=== PATIENT | male | born 1950 | race Two or more races ===

== ENCOUNTER 2017-11-12 09:00 | Outpatient (CLI) | payer OTHER | END 2017-11-12 09:02 | disposition home or self-care (01) | LOC: RAD 501 09:00 | DX: M19.071 Primary osteoarthritis, right ankle and foot (principal); M19.072 Primary osteoarthritis, left ankle and foot ==

== ENCOUNTER 2021-09-04 06:27 | Emergency (ER) | payer OTHER ==
[~2021-09-04] VITALS: Ht 172.7 cm; Wt 68.0 kg
[2021-09-04] MEDS ORDERED: LOSARTAN POTAS100 MG PO (07:13)
[2021-09-04] MEDS ORDERED: CILOSTAZOL100 MG PO (07:14)
[2021-09-04] MEDS ORDERED: PLAVIX75 MG PO (07:14)
[2021-09-04] MEDS ORDERED: VAZALORE81 MG PO (07:14)
[2021-09-04] MEDS ORDERED: CARVEDILOL ER40 MG (07:14)
[2021-09-04] MEDS ORDERED: VALACYCLOVIR500 MG PO (08:50)
[2021-09-04] MEDS ORDERED: GABAPENTIN100 MG PO (08:50)
== END 2021-09-04 08:55 | disposition home or self-care (01) ==
LOC: ER 06:27
DX: B02.9 Zoster without complications (principal)

== ENCOUNTER 2021-09-07 14:34 | Emergency (ER) | payer OTHER ==
[~2021-09-07] VITALS: Ht 172.7 cm; Wt 68.0 kg
[~2021-09-07 14:34] MED LIST: CARVEDILOL ER40 MG; CILOSTAZOL100 MG PO; GABAPENTIN100 MG PO; LOSARTAN POTAS100 MG PO; PLAVIX75 MG PO; VALACYCLOVIR500 MG PO; VAZALORE81 MG PO
== END 2021-09-07 18:52 | disposition home or self-care (01) ==
LOC: ER 14:34
DX: G51.0 Bell's palsy (principal); B02.9 Zoster without complications; I10 Essential (primary) hypertension